=== PATIENT | female | born 1945 | race Caucasian/White ===

== ENCOUNTER 2018-10-09 08:49 | Day surgery (SDC) | payer MEDICARE, OTHER ==
[2018-10-04 10:17] VITALS: BMI 34.0
[~2018-10-09 08:49] MED LIST: LACTATED RINGERS 1,000 ML IV SCH; LIDOCAINE 1% 20 ML VIAL (10MG/ML) FOR IV START INTRADERMA PRN
[2018-10-09 09:13] VITALS: RESP 16; TEMP 97
[2018-10-09] MEDS ORDERED: LIDOCAINE 1% 20 ML VIAL (10MG/ML) FOR IV START INTRADERMA ONE (09:43)
[2018-10-09] MEDS ORDERED: LIDOCAINE 1% INJ 10MG/ML (20 ML MDV) ONE (09:43)
[2018-10-09] MEDS ORDERED: PROPOFOL 10 MG/ML 20 ML VIAL IV ONE (09:43)
[2018-10-09 09:48] LABS: Glucose,Whole Blood 152 mg/dL (75-99)
--- NOTE | 2018-10-09 09:49 | P.GSHP ---
History of Present Illness H&P Date: 10/09/18 Chief Complaint: Colon cancer screening Patient is a history of precancerous colon polyps 3 years ago. She was told to have a follow-up screening colonoscopy 3 years later. Some chronic constipation and IBS issues. No rectal bleeding. Past Medical History Past Medical History: Diabetes Mellitus, Hyperlipidemia, Hypertension Additional Past Medical History / Comment(s): constipation,IBS,palpitation History of Any Multi-Drug Resistant Organisms: None Reported Past Surgical History: Appendectomy, Section, Hernia Repair Additional Past Surgical History / Comment(s): double hernia repair,c section x2 Past Anesthesia/Blood Transfusion Reactions: No Reported Reaction Additional Past Anesthesia/Blood Transfusion Reaction / Comment(s): no hx blood transfusion. difficult IV insertion Smoking Status: Never smoker - Past Family History Mother Family Medical History: Cancer Additional Family Medical History / Comment(s): breast Father Family Medical History: Cancer Additional Family Medical History / Comment(s): lymphoma Sister(s) Family Medical History: Cancer Additional Family Medical History / Comment(s): breast Brother(s) Family Medical History: Cancer Additional Family Medical History / Comment(s): prostate Medications and Allergies Home Medications Medication Instructions Recorded Confirmed Type Ergocalciferol [Vitamin D2] 50,000 unit PO WE 10/04/18 10/04/18 History Levothyroxine Sodium [Synthroid] 75 mcg PO QAM 10/04/18 10/04/18 History Lisinopril 20 mg PO QAM 10/04/18 10/04/18 History Lovastatin [Mevacor] 20 mg PO HS 10/04/18 10/04/18 History Allergies Allergy/AdvReac Type Severity Reaction Status Date / Time clindamycin [From Cleocin] Allergy Rash/Hives Verified 10/09/18 09:41 erythromycin base Allergy Rash/Hives Verified 10/09/18 09:41 Penicillins Allergy Rash/Hives Verified 10/09/18 09:41 Surgical - Exam Vital Signs Temp Pulse Resp BP Pulse Ox 97.0 F L 94 16 158/74 95 10/09/18 09:12 10/09/18 09:12 10/09/18 09:12 10/09/18 09:12 10/09/18 09:12 Physical exam: General: Well-developed, well-nourished HEENT: Normocephalic, sclerae nonicteric Abdomen: Nontender, nondistended Extremities: No edema Neuro: Alert and oriented Assessment and Plan (1) Colon cancer screening Narrative/Plan: Will proceed with colonoscopy Current Visit: Yes Status: Acute Code(s): Z12.11 - ENCOUNTER FOR SCREENING FOR MALIGNANT NEOPLASM OF COLON SNOMED Code(s): 883902317
--- NOTE | 2018-10-09 10:12 | P.PCN ---
Date of Procedure: 10/09/18 Procedure(s) Performed: Date of Procedure: 10/09/18 Procedure(s) Performed: PREOPERATIVE DIAGNOSIS: Colon cancer screening, history of precancerous colon polyp POSTOPERATIVE DIAGNOSIS: Ascending colon polyp, transverse colon polyp 2, extensive left-sided diverticulosis PROCEDURE: Colonoscopy with snare polypectomy ANESTHESIA: [facility] [place] SURGEON: Sebastien Stiles M.D. SPECIMENS: Polyps ENDOSCOPIC PROCEDURE: The patient was placed on the endoscopy table in the left decubitus position. The Olympus colonoscope was inserted into the anus and passed under direct visualization to the base of the cecum. The appendiceal orifice was visualized. From that point the scope was slowly withdrawn inspecting all surfaces carefully. There were no neoplastic inflammatory or polypoid lesions throughout the cecum. In the ascending colon a small polyp was identified and removed using the snare with cautery technique. No significant specimen was seen as this appeared to be fulgurated. In the transverse colon 2 polyps were identified. These were both removed using the snare with cautery technique. The remainder of the transverse descending sigmoid and rectum appeared normal. There was extensive left-sided diverticulosis present. Digital rectal examination was normal. The patient was taken to the recovery room in stable condition per anesthesia guidelines. RECOMMENDATIONS: Await biopsy results. Recommend follow-up colonoscopy 5 years.
[2018-10-09 10:44] VITALS: BP 113/55; PULSE 77
== END 2018-10-09 11:09 | disposition home or self-care (01) ==
LOC: ORWHC2ENDO 08:49
PROVIDERS: ATTEND Surgery
DX: Z12.11 Encounter for screening for malignant neoplasm of colon (principal); D12.2 Benign neoplasm of ascending colon; D12.3 Benign neoplasm of transverse colon; E11.9 Type 2 diabetes mellitus without complications; E78.5 Hyperlipidemia, unspecified; I10 Essential (primary) hypertension; K57.30 Diverticulosis of large intestine without perforation or abscess without bleeding; K58.9 Irritable bowel syndrome, unspecified; K59.09 Other constipation; Z86.010 Personal history of colon polyps; Z88.0 Allergy status to penicillin; Z88.1 Allergy status to other antibiotic agents; Z79.890 Hormone replacement therapy; Z79.899 Other long term (current) drug therapy
CPT/HCPCS: 88305; 45385; J2001; J2704

== ENCOUNTER → 2020-06-22 | Outpatient (CLI) | payer MEDICARE, OTHER ==
--- NOTE | 2020-07-08 10:45 | MM ---
Reason for exam: screening (asymptomatic). Last mammogram was performed 3 years and 10 months ago. History: Patient is postmenopausal. Family history of breast cancer in mother at age 80. Excisional biopsy of the left breast. Took hormonal contraceptives for 1 year. Physical Findings: A clinical breast exam by your physician is recommended on an annual basis and results should be correlated with mammographic findings. MG 3D Screening Mammo W/Cad Bilateral CC and MLO view(s) were taken. Prior study comparison: August 14, 2016, mammogram, performed at [place]. July 27, 2015, mammogram, performed at [place]. There are scattered fibroglandular densities. Artifact right breast. There is no discrete abnormality. No significant changes when compared with prior studies. ASSESSMENT: Benign, BI-RAD 2 RECOMMENDATION: Routine screening mammogram of both breasts in 1 year.
== END | disposition home or self-care (01) ==
LOC: RADMAMWWP 16:44
PROVIDERS: ATTEND Family Medicine
DX: Z12.31 Encounter for screening mammogram for malignant neoplasm of breast (principal); Z80.3 Family history of malignant neoplasm of breast
CPT/HCPCS: 77063; 77067

== ENCOUNTER 2021-03-06 04:21 | Observation (INO) | payer MEDICARE, OTHER ==
[2021-03-06] MEDS ORDERED: ONDANSETRON 4 MG/2 ML VIAL IVP STA (04:56)
[2021-03-06] MEDS ORDERED: MORPHINE SULFATE 4 MG/ML SYRINGE IV STA (04:56)
[2021-03-06] MEDS ORDERED: SODIUM CHLORIDE 0.9% 500 ML 500 ML IV STA (04:56)
--- NOTE | 2021-03-06 05:00 | ED ---
Abdominal Pain HPI - General Chief Complaint: Abdominal Pain Stated Complaint: Abdominal pain Time Seen by Provider: 03/06/21 04:25 Source: patient, EMS Mode of arrival: EMS Limitations: no limitations - History of Present Illness Initial Comments: This patient is 75-year-old woman who presents with complaint of abdominal pain and nausea. Patient states that the symptoms had started about an hour after she had eaten at her residence. The patient describes a bloating or fullness with some occasional cramping. His long the upper abdomen. No radiation. She has also had nausea but no vomiting. Patient rates it moderate in intensity. She also has been having some back pains for about 2 weeks since she had lifted her who she states is a very big man. She states that the back has been hurting worse, it is an aching, bilateral. No weakness or numbness of the extremities. No change in bladder or bowel function. MD Complaint: abdominal pain -: hour(s) Location: LUQ, RUQ, epigastric Radiation: none Severity: moderate Quality: fullness Consistency: constant Improves With: nothing Worsens With: nothing Associated Symptoms: nausea - Related Data Home Medications Medication Instructions Recorded Confirmed lisinopriL 20 mg PO DAILY 10/04/18 03/06/21 Rosuvastatin [Crestor] 20 mg PO HS 03/06/21 03/06/21 Ergocalciferol [Vitamin D2 (1250 1,250 mcg PO Q7D 03/07/21 03/07/21 Mcg = 50014 Iu)] metFORMIN HCL [Glucophage] 500 mg PO DAILY@1200 03/07/21 03/07/21 Previous Rx's Medication Instructions Recorded Levothyroxine Sodium [Euthyrox] 50 mcg PO DAILY #1 tablet 03/07/21 Allergies Allergy/AdvReac Type Severity Reaction Status Date / Time clindamycin [From Cleocin] Allergy Rash/Hives Verified 03/06/21 07:48 erythromycin base Allergy Rash/Hives Verified 03/06/21 07:48 Penicillins Allergy Rash/Hives Verified 03/06/21 07:48 Review of Systems ROS Statement: Those systems with pertinent positive or pertinent negative responses have been documented in the HPI. ROS Other: All systems not noted in ROS Statement are negative. Constitutional: Denies: fever, chills Respiratory: Denies: cough, dyspnea Cardiovascular: Denies: chest pain, palpitations, edema Gastrointestinal: Reports: as per HPI, abdominal pain, nausea. Denies: vomiting, diarrhea, constipation, melena, hematochezia Genitourinary: Denies: dysuria, hematuria Musculoskeletal: Reports: as per HPI, back pain Skin: Denies: rash Neurological: Denies: headache, weakness, numbness Past Medical History Past Medical History: Diabetes Mellitus, Hyperlipidemia, Hypertension Additional Past Medical History / Comment(s): constipation,IBS,palpitation History of Any Multi-Drug Resistant Organisms: None Reported Past Surgical History: Appendectomy, Section, Hernia Repair Additional Past Surgical History / Comment(s): double hernia repair,c section x2 Past Anesthesia/Blood Transfusion Reactions: No Reported Reaction Additional Past Anesthesia/Blood Transfusion Reaction / Comment(s): no hx blood transfusion. difficult IV insertion Smoking Status: Never smoker Past Alcohol Use History: None Reported Past Drug Use History: None Reported - Past Family History Mother Family Medical History: Cancer Additional Family Medical History / Comment(s): breast Father Family Medical History: Cancer Additional Family Medical History / Comment(s): lymphoma Sister(s) Family Medical History: Cancer Additional Family Medical History / Comment(s): breast Brother(s) Family Medical History: Cancer Additional Family Medical History / Comment(s): prostate General Exam Limitations: no limitations General appearance: alert, in no apparent distress Head exam: Present: atraumatic, normocephalic Eye exam: Present: normal appearance. Absent: scleral icterus, conjunctival injection Neck exam: Present: normal inspection, full ROM Respiratory exam: Present: normal lung sounds bilaterally. Absent: respiratory distress, wheezes, rales, rhonchi, stridor Cardiovascular Exam: Present: regular rate, normal rhythm, normal heart sounds. Absent: systolic murmur, diastolic murmur, rubs, gallop GI/Abdominal exam: Present: soft. Absent: distended, tenderness, guarding, rebound, rigid, mass, pulsatile mass, hernia Extremities exam: Present: normal inspection, normal capillary refill. Absent: pedal edema, calf tenderness Back exam: Present: normal inspection, paraspinal tenderness. Absent: CVA tenderness (R), CVA tenderness (L), vertebral tenderness Neurological exam: Present: alert Skin exam: Present: warm, dry, intact, normal color. Absent: rash Course Vital Signs 03/06/21 03/06/21 03/06/21 04:22 06:37 09:14 Temperature 98.4 F Pulse Rate 74 77 75 Respiratory 16 18 18 Rate Blood Pressure 145/72 134/53 131/64 O2 Sat by Pulse 97 96 96 Oximetry Medical Decision Making - Medical Decision Making At the initial history and physical, the patient did request medication for naus ea. When I asked if she wanted the analgesic medicine she stated that she felt it would be more needed for her back then and her abdomen. - Lab Data Result diagrams: 03/07/21 06:21 03/07/21 06:21 Lab Results 03/06/21 03/06/21 03/06/21 Range/Units 05:00 05:00 05:00 WBC 13.4 H (3.8-10.6) k/uL RBC 4.64 (3.80-5.40) m/uL Hgb 14.9 (11.4-16.0) gm/dL Hct 43.7 (34.0-46.0) % MCV 94.0 (80.0-100.0) fL MCH 32.0 (25.0-35.0) pg MCHC 34.1 (31.0-37.0) g/dL RDW 12.6 (11.5-15.5) % Plt Count 328 (150-450) k/uL MPV 6.9 Neutrophils % 88 % Lymphocytes % 7 % Monocytes % 3 % Eosinophils % 1 % Basophils % 1 % Neutrophils # 11.8 H (1.3-7.7) k/uL Lymphocytes # 0.9 L (1.0-4.8) k/uL Monocytes # 0.4 (0-1.0) k/uL Eosinophils # 0.1 (0-0.7) k/uL Basophils # 0.1 (0-0.2) k/uL Sodium 136 L (137-145) mmol/L Potassium 4.7 (3.5-5.1) mmol/L Chloride 102 (98-107) mmol/L Carbon Dioxide 25 (22-30) mmol/L Anion Gap 9 mmol/L BUN 20 H (7-17) mg/dL Creatinine 0.79 (0.52-1.04) mg/dL Est GFR (CKD-EPI)AfAm 85 (>60 ml/min/1.73 sqM) Est GFR (CKD-EPI)NonAf 74 (>60 ml/min/1.73 sqM) Glucose 182 H (74-99) mg/dL Calcium 9.7 (8.4-10.2) mg/dL Total Bilirubin 0.7 (0.2-1.3) mg/dL AST 29 (14-36) U/L ALT 19 (4-34) U/L Alkaline Phosphatase 72 (38-126) U/L Total Protein 7.1 (6.3-8.2) g/dL Albumin 4.6 (3.5-5.0) g/dL Amylase 61 (30-110) U/L Lipase 81 (23-300) U/L Urine Color Yellow Urine Appearance Clear (Clear) Urine pH 5.5 (5.0-8.0) Ur Specific Hart[place]orn 1.027 (1.001-1.035) Urine Protein Negative (Negative) Urine Glucose (UA) 1+ H (Negative) Urine Ketones Trace H (Negative) Urine Blood Negative (Negative) Urine Nitrite Negative (Negative) Urine Bilirubin Negative (Negative) Urine Urobilinogen <2.0 (<2.0) mg/dL Ur Leukocyte Esterase Small H (Negative) Urine RBC 1 (0-5) /hpf Urine WBC 1 (0-5) /hpf Ur Squamous Epith Cells 2 (0-4) /hpf Hyaline Casts 4 H (0-2) /lpf Urine Mucus Rare H (None) /hpf Disposition Clinical Impression: Abdominal pain, Biliary colic Disposition: ADMITTED IP TO THIS HOSP Condition: Stable
[2021-03-06 05:23] LABS: Basophils # (A) 0.1 k/uL (0-0.2); Basophils % (A) 1 %; Eosinophils # (A) 0.1 k/uL (0-0.7); Eosinophils % (A) 1 %; HCT 43.7 % (34.0-46.0); HGB 14.9 gm/dL (11.4-16.0); Lymphocytes # (A) 0.9 k/uL (1.0-4.8); Lymphocytes % (A) 7 %; MCHC 34.1 g/dL (31.0-37.0); Mean Platelet Volume 6.9; Monocytes # (A) 0.4 k/uL (0-1.0); Monocytes % (A) 3 %; Neutrophils # (A) 11.8 k/uL (1.3-7.7); Neutrophils % (A) 88 %; Platelet Count 328 k/uL (150-450); RBC 4.64 m/uL (3.80-5.40); RDW 12.6 % (11.5-15.5); WBC 13.4 k/uL (3.8-10.6)
[2021-03-06 05:31] LABS: Albumin 4.6 g/dL (3.5-5.0); Calcium 9.7 mg/dL (8.4-10.2); Potassium 4.7 mmol/L (3.5-5.1); Total Bilirubin 0.7 mg/dL (0.2-1.3); Total Protein 7.1 g/dL (6.3-8.2)
[2021-03-06 06:44] LABS: Appearance,Urine Clear (Clear); Bilirubin,Urine Negative (Negative); Blood,Urine Negative (Negative); Color,Urine Yellow; Glucose,Urine (UA) 1+ (Negative); Hyaline Casts,Urine 4 /lpf (0-2); Ketones,Urine Trace (Negative); Leukocyte Esterase,Urine Small (Negative); Mucus,Urine Rare /hpf; Nitrite,Urine Negative (Negative); PH, Urine 5.5 (5.0-8.0); Protein,Urine Negative (Negative); RBC,Urine 1 /hpf (0-5); Specific Gravity,Urine 1.027 (1.001-1.035); Squamous Epithelial Cell,Urine 2 /hpf (0-4); Urobilinogen,Urine <2.0 mg/dL (<2.0); WBC,Urine 1 /hpf (0-5)
[2021-03-06] MEDS ORDERED: HYDROmorphone 0.5 MG/0.5 ML SYRINGE IVP PRN (07:11)
[2021-03-06] MEDS ORDERED: NALOXONE 0.4 MG/ML 1 ML VIAL IV PRN (07:11)
[2021-03-06] MEDS ORDERED: HYDROmorphone 1 MG/ML 1 ML SYRINGE IVP PRN (07:11)
[2021-03-06] MEDS ORDERED: ONDANSETRON 4 MG/2 ML VIAL IVP PRN (07:11)
--- NOTE | 2021-03-06 07:15 | CT ---
EXAM: CT Abdomen and Pelvis Without Intravenous Contrast CLINICAL HISTORY: ITS.REASON CT Reason: abdominal pain TECHNIQUE: Axial computed tomography images of the abdomen and pelvis without intravenous contrast. CTDI is 15.67 mGy and DLP is 871.5 mGy-cm. This CT exam was performed using one or more of the following dose reduction techniques: automated exposure control, adjustment of the mA and/or kV according to patient size, and/or use of iterative reconstruction technique. COMPARISON: No relevant prior studies available. FINDINGS: Lung bases: Unremarkable. No mass. No consolidation. ABDOMEN: Liver: Unremarkable. Gallbladder and bile ducts: Multiple large peripherally calcified stones. No ductal dilation. Pancreas: Unremarkable. No ductal dilation. Spleen: Unremarkable. No splenomegaly. Adrenals: Unremarkable. No mass. Kidneys and ureters: Unremarkable. No obstructing stones. No hydronephrosis. Stomach and bowel: Extensive colonic diverticulosis. No obstruction. No mucosal thickening. PELVIS: Appendix: No findings to suggest acute appendicitis. Bladder: Unremarkable. No stones. Reproductive: Unremarkable as visualized. ABDOMEN and PELVIS: Intraperitoneal space: Unremarkable. No free air. No significant fluid collection. Bones/joints: No acute fracture. No dislocation. Soft tissues: Unremarkable. Vasculature: Unremarkable. No abdominal aortic aneurysm. Lymph nodes: Unremarkable. No enlarged lymph nodes. IMPRESSION: 1. Cholelithiasis. 2. Extensive colonic diverticulosis. No evidence of diverticulitis. 3. Moderate hiatal hernia.
[2021-03-06] MEDS: SODIUM CHLORIDE 0.9% 1,000 ML IV SCH ×3 (07:18→21:28)
[2021-03-06] MEDS: PANTOPRAZOLE 40 MG/10 ML VIAL IV SCH (09:13)
[2021-03-06] MEDS: lisinopriL 20 MG TAB PO SCH (09:15)
[2021-03-06] MEDS: LEVOTHYROXINE 75 MCG TAB PO SCH (09:15)
--- NOTE | 2021-03-06 12:02 | P.GSCN ---
History of Present Illness Consult date: 03/06/21 Reason for Consult: Abdominal pain and nausea History of present illness: The patient's a 75-year-old female that presented with abdominal pain and nausea. It started shortly after eating some shrimp cream sauce. Tubal bloating and discomfort across the upper abdomen going through to the back. No vomiting. She's had this before but not as severe. She also is complaining of low back pain after lifting her . Denies jaundice, tea-colored urine, acholic stool, fevers or chills, no blood in the stools or dark tarry stools Review of Systems All systems: negative Past Medical History Past Medical History: Diabetes Mellitus, Hyperlipidemia, Hypertension Additional Past Medical History / Comment(s): constipation,IBS,palpitation History of Any Multi-Drug Resistant Organisms: None Reported Past Surgical History: Appendectomy, Section, Hernia Repair Additional Past Surgical History / Comment(s): double hernia repair,c section x2 Past Anesthesia/Blood Transfusion Reactions: No Reported Reaction Additional Past Anesthesia/Blood Transfusion Reaction / Comm: no hx blood transfusion. difficult IV insertion Smoking Status: Never smoker Past Alcohol Use History: None Reported Past Drug Use History: None Reported - Past Family History Mother Family Medical History: Cancer Additional Family Medical History / Comment(s): breast Father Family Medical History: Cancer Additional Family Medical History / Comment(s): lymphoma Sister(s) Family Medical History: Cancer Additional Family Medical History / Comment(s): breast Brother(s) Family Medical History: Cancer Additional Family Medical History / Comment(s): prostate Medications and Allergies Home Medications Medication Instructions Recorded Confirmed Type lisinopriL 20 mg PO DAILY 10/04/18 03/06/21 History Levothyroxine Sodium [Synthroid] 50 mcg PO DAILY 03/06/21 03/06/21 History Metformin(Unknown) 1 tab PO DAILY@1200 03/06/21 03/06/21 History Rosuvastatin [Crestor] 20 mg PO HS 03/06/21 03/06/21 History Allergies Allergy/AdvReac Type Severity Reaction Status Date / Time clindamycin [From Cleocin] Allergy Rash/Hives Verified 03/06/21 07:48 erythromycin base Allergy Rash/Hives Verified 03/06/21 07:48 Penicillins Allergy Rash/Hives Verified 05/02/21 07:48 Surgical - Exam Osteopathic Statement: *. No significant issues noted on an osteopathic structural exam other than those noted in the History and Physical/Consult. Vital Signs Temp Pulse Resp BP Pulse Ox 98.4 F 74 16 145/72 97 03/06/21 04:22 03/06/21 04:22 03/06/21 04:22 03/06/21 04:22 03/06/21 04:22 - General Age-appropriate, appears uncomfortable well developed, well nourished - Eyes normal ocular movement - Neck trachea midline - Respiratory normal respiratory effort, clear to auscultation - Cardiovascular Rhythm: regular - Abdomen Abdomen: soft, tender (Across upper abdomen), bowel sounds, no guarding, no rigid, no rebound - Psychiatric oriented to time, oriented to person, oriented to place, speech is normal, memory intact Results - Labs 03/06/21 05:00 03/06/21 05:00 Abnormal Lab Results - Last 24 Hours (Table) 03/06/21 03/06/21 03/06/21 Range/Units 05:00 05:00 05:00 WBC 13.4 H (3.8-10.6) k/uL Neutrophils # 11.8 H (1.3-7.7) k/uL Lymphocytes # 0.9 L (1.0-4.8) k/uL Sodium 136 L (137-145) mmol/L BUN 20 H (7-17) mg/dL Glucose 182 H (74-99) mg/dL Urine Glucose (UA) 1+ H (Negative) Urine Ketones Trace H (Negative) Ur Leukocyte Esterase Small H (Negative) Hyaline Casts 4 H (0-2) /lpf Urine Mucus Rare H (None) /hpf Diabetes panel 03/06/21 Range/Units 05:00 Sodium 136 L (137-145) mmol/L Potassium 4.7 (3.5-5.1) mmol/L Chloride 102 (98-107) mmol/L Carbon Dioxide 25 (22-30) mmol/L BUN 20 H (7-17) mg/dL Creatinine 0.79 (0.52-1.04) mg/dL Glucose 182 H (74-99) mg/dL Calcium 9.7 (8.4-10.2) mg/dL AST 29 (14-36) U/L ALT 19 (4-34) U/L Alkaline Phosphatase 72 (38-126) U/L Total Protein 7.1 (6.3-8.2) g/dL Albumin 4.6 (3.5-5.0) g/dL Calcium panel 03/06/21 Range/Units 05:00 Calcium 9.7 (8.4-10.2) mg/dL Albumin 4.6 (3.5-5.0) g/dL Pituitary panel 03/06/21 Range/Units 05:00 Sodium 136 L (137-145) mmol/L Potassium 4.7 (3.5-5.1) mmol/L Chloride 102 (98-107) mmol/L Carbon Dioxide 25 (22-30) mmol/L BUN 20 H (7-17) mg/dL Creatinine 0.79 (0.52-1.04) mg/dL Glucose 182 H (74-99) mg/dL Calcium 9.7 (8.4-10.2) mg/dL Adrenal panel 03/06/21 Range/Units 05:00 Sodium 136 L (137-145) mmol/L Potassium 4.7 (3.5-5.1) mmol/L Chloride 102 (98-107) mmol/L Carbon Dioxide 25 (22-30) mmol/L BUN 20 H (7-17) mg/dL Creatinine 0.79 (0.52-1.04) mg/dL Glucose 182 H (74-99) mg/dL Calcium 9.7 (8.4-10.2) mg/dL Total Bilirubin 0.7 (0.2-1.3) mg/dL AST 29 (14-36) U/L ALT 19 (4-34) U/L Alkaline Phosphatase 72 (38-126) U/L Total Protein 7.1 (6.3-8.2) g/dL Albumin 4.6 (3.5-5.0) g/dL - Imaging CT scan - abdomen: report reviewed, image reviewed Assessment and Plan (1) Cholelithiasis Current Visit: Yes Status: Acute Code(s): K80.20 - CALCULUS OF GALLBLADDER W/O CHOLECYSTITIS W/O OBSTRUCTION SNOMED Code(s): 093708060 (2) Biliary colic Current Visit: Yes Status: Acute Code(s): K80.50 - CALCULUS OF BILE DUCT W/O CHOLANGITIS OR CHOLECYST W/O OBST SNOMED Code(s): 14980216 (3) Nausea Current Visit: Yes Status: Acute Code(s): R11.0 - NAUSEA SNOMED Code(s): 261220933 (4) Low back pain Current Visit: Yes Status: Acute Code(s): M54.5 - LOW BACK PAIN SNOMED Code(s): 931496737 Plan: The patient is having persistent pain and nausea. Initially this improved with some pain medication but it's become worse again. She'd like to proceed with surgery. The procedure, risks, complications and usual postoperative course was discussed. Questions were encouraged and answered. We'll do this for her today.
[2021-03-06] MEDS ORDERED: ROCURONIUM 10 MG/ML (5 ML VIAL) IV ONE (13:13)
[2021-03-06] MEDS ORDERED: fentaNYL (PF) 50 MCG/ML 2 ML AMP ONE (13:13)
[2021-03-06] MEDS ORDERED: SUCCINYLCHOLINE CHLORIDE 100 MG/5 ML SYR IV ONE (13:13)
[2021-03-06] MEDS ORDERED: PROPOFOL 10 MG/ML 20 ML VIAL IV ONE (13:13)
[2021-03-06] MEDS ORDERED: PHENYLEPHRINE-0.9% NACL SYG 1,000 MCG/10 ML SYRINGE ONE (13:13)
[2021-03-06] MEDS ORDERED: ONDANSETRON 4 MG/2 ML VIAL ONE (13:13)
[2021-03-06] MEDS ORDERED: GLYCOPYRROLATE 0.2 MG/ML 2 ML VIAL ONE (13:13)
[2021-03-06] MEDS ORDERED: SODIUM CHLORIDE 0.9% 1,000 ML IV ONE (13:13)
[2021-03-06] MEDS ORDERED: MIDAZOLAM 2 MG/2 ML VIAL ONE (13:13)
[2021-03-06] MEDS ORDERED: NEOSTIGMINE 1 MG/ML 10 ML VIAL ONE (13:13)
[2021-03-06] MEDS ORDERED: SODIUM CHLORIDE 0.9% 100 ML with ceFAZolin 2,000 MG IV ONE ×2 (13:15)
[2021-03-06] MEDS ORDERED: LIDOCAINE 1%-EPI 1:100,000 20 ML VIAL SQ ONE ×2 (13:31)
[2021-03-06] MEDS ORDERED: BUPIVACAINE (PF) 0.25% 30 ML VIAL SQ ONE ×2 (13:31)
[2021-03-06] MEDS ORDERED: LACTATED RINGERS 1,000 ML IV ONE ×2 (14:00)
[2021-03-06] MEDS ORDERED: HYDROcodone/APAP 5-325MG 1 EACH TAB PO PRN (14:20)
--- NOTE | 2021-03-06 14:20 | P.OP ---
Date of Procedure: 03/06/21 Preoperative Diagnosis: Cholelithiasis, cholecystitis Postoperative Diagnosis: Cholelithiasis, acute cholecystitis Procedure(s) Performed: Laparoscopic cholecystectomy Anesthesia: GORAN Surgeon: Jennifer Aguilar Pathology: other Condition: stable Disposition: PACU Indications for Procedure: The patient presented with several hours of acute abdominal pain and nausea. She was worked up in the ER and found to have cholelithiasis with symptoms most consistent with cholecystitis. Initially she declined surgery. More hours of pain she was agreeable. Description of Procedure: The patient is taken to the operative suite where she is prepped and draped in the usual sterile manner under a general endotracheal anesthetic. A supraumbilical incision was made. The fascia was grasped and incised. The peritoneum was grasped and incised. A finger sweep was carried out. There were some adhesions of the omentum to the lower midline. A balloon trocar was inserted and pneumoperitoneum was established with CO2 gas. Sites are chosen for accessory trochars needs are placed through small skin incisions. The patient was placed in reverse Trendelenburg. The gallbladder was very distended and hard. It was somewhat edematous. It had to be decompressed of about 60 mL's of murky bile to allow for grasping it. The fundus was then grasped and retracted superiorly, filmy adhesions of the omentum were taken down with scissors. Calvo's pouch was then identified and it was grasped and retracted laterally. The cystic artery and cystic duct are dissected free. They are triply clipped and cut. The cystic duct is further secured with 0 PDS Endoloop. The gallbladder is then dissected free from the liver bed. Small bleeding points were controlled with electrocautery. The gallbladder was placed into a specimen retrieval bag. The liver bed was irrigated and small bleeding points were controlled with electrocautery. Once the liver bed was hemostatic, the access irrigant was suctioned out. The pneumoperitoneum was released. The trochars were removed. The skin and fascia at the umbilicus had to be extended for removal of the gallbladder. 2 large stones were present. Shut the umbilicus was then closed with 0 Vicryl. The skin incisions were closed with марина. Sterile dressings were applied. She tolerated the procedure without difficulty and was taken recovery room in satisfactory condition. According to or personnel, all counts were correct.
--- NOTE | 2021-03-06 14:28 | P.HPIM ---
History of Present Illness H&P Date: 03/06/21 Chief Complaint: Abdominal pain 75-year-old woman who presents with complaint of abdominal pain and nausea. Patient states that the symptoms had started about an hour after she had eaten at her residence. The patient describes a bloating or fullness with some occasional cramping. His long the upper abdomen. No radiation. She has also had nausea but no vomiting. Patient rates it moderate in intensity. She also has been having some back pains for about 2 weeks since she had lifted her who she states is a very big man. She states that the back has been hurting worse, it is an aching, bilateral. No weakness or numbness of the extremities. No change in bladder or bowel function. Workup in ED including a CT of the abdomen and pelvis which revealed cholel ithiasis and extensive colonic diverticulosis without diverticulitis; lab work reveals elevated white blood count of 13.4; liver enzymes are normal; UA is unremarkable Review of Systems REVIEW OF SYSTEMS: CONSTITUTIONAL: No fever, no malaise, no fatigue. HEENT: No recent visual problems or hearing problems. Denied any sore throat. CARDIOVASCULAR: No chest pain, orthopnea, PND, no palpitations, no syncope. PULMONARY: No shortness of breath, no cough, no hemoptysis. GASTROINTESTINAL: Significant for abdominal pain. NEUROLOGICAL: No headaches, no weakness, no numbness. HEMATOLOGICAL: Denies any bleeding or petechiae. GENITOURINARY: Denies any burning micturition, frequency, or urgency. MUSCULOSKELETAL/RHEUMATOLOGICAL: Denies any joint pain, swelling, or any muscle pain. ENDOCRINE: Denies any polyuria or polydipsia. The rest of the 14-point review of systems is negative. Past Medical History Past Medical History: Diabetes Mellitus, Hyperlipidemia, Hypertension Additional Past Medical History / Comment(s): constipation,IBS,palpitation History of Any Multi-Drug Resistant Organisms: None Reported Past Surgical History: Appendectomy, Section, Hernia Repair Additional Past Surgical History / Comment(s): double hernia repair,c section x2 Past Anesthesia/Blood Transfusion Reactions: No Reported Reaction Additional Past Anesthesia/Blood Transfusion Reaction / Comment(s): no hx blood transfusion. difficult IV insertion Smoking Status: Never smoker Past Alcohol Use History: None Reported Past Drug Use History: None Reported - Past Family History Mother Family Medical History: Cancer Additional Family Medical History / Comment(s): breast Father Family Medical History: Cancer Additional Family Medical History / Comment(s): lymphoma Sister(s) Family Medical History: Cancer Additional Family Medical History / Comment(s): breast Brother(s) Family Medical History: Cancer Additional Family Medical History / Comment(s): prostate Medications and Allergies Home Medications Medication Instructions Recorded Confirmed Type lisinopriL 20 mg PO DAILY 10/04/18 03/06/21 History Levothyroxine Sodium [Synthroid] 50 mcg PO DAILY 03/06/21 03/06/21 History Metformin(Unknown) 1 tab PO DAILY@1200 03/06/21 03/06/21 History Rosuvastatin [Crestor] 20 mg PO HS 03/06/21 03/06/21 History Allergies Allergy/AdvReac Type Severity Reaction Status Date / Time clindamycin [From Cleocin] Allergy Rash/Hives Verified 03/06/21 07:48 erythromycin base Allergy Rash/Hives Verified 03/06/21 07:48 Penicillins Allergy Rash/Hives Verified 03/06/21 07:48 Physical Exam Vitals: Vital Signs Temp Pulse Resp BP Pulse Ox 03/06/21 09:14 75 18 131/64 96 03/06/21 06:37 77 18 134/53 96 03/06/21 04:22 98.4 F 74 16 145/72 97 Intake and Output 03/05/21 03/06/21 03/06/21 22:59 06:59 14:59 Other: Weight 86.183 kg PHYSICAL EXAMINATION: GENERAL: The patient is alert and oriented x3, not in any acute distress. Well developed, well nourished. HEENT: Pupils are round and equally reacting to light. EOMI. No scleral icterus. No conjunctival pallor. Normocephalic, atraumatic. No pharyngeal erythema. No thyromegaly. CARDIOVASCULAR: S1 and S2 present. No murmurs, rubs, or gallops. PULMONARY: Chest is clear to auscultation, no wheezing or crackles. ABDOMEN: Soft, nontender, nondistended, normoactive bowel sounds. No palpable organomegaly. MUSCULOSKELETAL: No joint swelling or deformity. EXTREMITIES: No cyanosis, clubbing, or pedal edema. NEUROLOGICAL: Gross neurological examination did not reveal any focal deficits. SKIN: No rashes. Results CBC & Chem 7: 03/06/21 05:00 03/06/21 05:00 Labs: Abnormal Lab Results - Last 24 Hours (Table) 03/06/21 03/06/21 03/06/21 Range/Units 05:00 05:00 05:00 WBC 13.4 H (3.8-10.6) k/uL Neutrophils # 11.8 H (1.3-7.7) k/uL Lymphocytes # 0.9 L (1.0-4.8) k/uL Sodium 136 L (137-145) mmol/L BUN 20 H (7-17) mg/dL Glucose 182 H (74-99) mg/dL Urine Glucose (UA) 1+ H (Negative) Urine Ketones Trace H (Negative) Ur Leukocyte Esterase Small H (Negative) Hyaline Casts 4 H (0-2) /lpf Urine Mucus Rare H (None) /hpf Thrombosis Risk Factor Assmnt - Choose All That Apply Each Risk Factor Represents 2 Points: Age 61-74 years, Laparoscopic surgery, Major surgery Thrombosis Risk Factor Assessment Total Risk Factor Score: 6 Thrombosis Risk Factor Assessment Level: High Risk Assessment and Plan Assessment: 1. Cholelithiasis without cholecystitis - Patient will be admitted to general surgical floor; we will keep patient nothing by mouth; IV fluids; pain controlled with IV Toradol - Surgery is consulted and patient is recommended laparoscopic cholecystectomy due to ongoing complain of pain and nausea; risks and complications of the procedure were discussed with patient and she is agreeable to proceed 2. Biliary colic; secondary to cholelithiasis; continue with IV fluids and pain control 3. Hypertension; continue with home dose of lisinopril 20 mg daily 4. Hypothyroidism; levothyroxine 75 MCG daily 5. Hyperlipidemia; Crestor 20 mg by mouth daily at bedtime DVT prophylaxis; SCDs only for possibility of procedure in 12-24 hours CODE STATUS; full code
[2021-03-06 17:50] LABS: Glucose,Whole Blood 169 mg/dL (75-99)
[2021-03-06] MEDS: INSULIN ASPART (NovoLOG) 100 UNIT/ML VIAL SQ SCH ×2 (17:57→20:39)
[2021-03-06 20:26] LABS: Glucose,Whole Blood 139 mg/dL (75-99)
[2021-03-06] MEDS: KETOROLAC 15 MG/ML 1 ML VIAL IVP PRN (20:38)
[2021-03-06] MEDS ORDERED: ATORVASTATIN 10 MG TAB PO SCH (21:00)
[2021-03-07] MEDS: KETOROLAC 15 MG/ML 1 ML VIAL IVP PRN (03:02)
[2021-03-07 06:24] LABS: Glucose,Whole Blood 113 mg/dL (75-99)
[2021-03-07] MEDS: LEVOTHYROXINE 75 MCG TAB PO SCH (06:28)
[2021-03-07 06:41] LABS: Basophils # (A) 0.1 k/uL (0-0.2); Basophils % (A) 1 %; Eosinophils # (A) 0.2 k/uL (0-0.7); Eosinophils % (A) 2 %; HCT 35.2 % (34.0-46.0); HGB 12.3 gm/dL (11.4-16.0); Lymphocytes # (A) 1.9 k/uL (1.0-4.8); Lymphocytes % (A) 19 %; MCH 33.5 pg (25.0-35.0); MCHC 34.9 g/dL (31.0-37.0); MCV 95.9 fL (80.0-100.0); Mean Platelet Volume 6.9; Monocytes # (A) 0.7 k/uL (0-1.0); Monocytes % (A) 7 %; Neutrophils % (A) 71 %; Platelet Count 224 k/uL (150-450); RBC 3.67 m/uL (3.80-5.40); RDW 12.9 % (11.5-15.5); WBC 9.9 k/uL (3.8-10.6)
[2021-03-07 06:57] LABS: Albumin 2.9 g/dL (3.5-5.0); Calcium 8.5 mg/dL (8.4-10.2); Potassium 4.8 mmol/L (3.5-5.1); Total Bilirubin 0.8 mg/dL (0.2-1.3); Total Protein 4.9 g/dL (6.3-8.2)
[2021-03-07] MEDS: INSULIN ASPART (NovoLOG) 100 UNIT/ML VIAL SQ SCH ×2 (07:28→12:24)
[2021-03-07] MEDS: SODIUM CHLORIDE 0.9% 1,000 ML IV SCH ×2 (09:12→13:05)
[2021-03-07] MEDS: lisinopriL 20 MG TAB PO SCH (09:12)
[2021-03-07] MEDS: PANTOPRAZOLE 40 MG/10 ML VIAL IV SCH (09:12)
--- NOTE | 2021-03-07 11:04 | P.PN ---
Subjective Progress Note Date: 03/07/21 The patient's postoperative day 1 laparoscopic cholecystectomy for acute cholecystitis. She feels much better than preoperative. Not requiring any pain medication. No nausea or vomiting. Tolerating a diet. Objective - Vital Signs Vital signs: Vital Signs Temp 98.5 F 03/07/21 08:20 Pulse 70 03/07/21 08:20 Resp 16 03/07/21 08:20 BP 96/55 03/07/21 08:20 Pulse Ox 95 03/07/21 08:20 Intake & Output 03/06/21 03/07/21 03/07/21 18:59 06:59 18:59 Intake Total 800 Output Total 885 400 Balance -85 -400 Weight 86.183 kg Intake: IV 800 Output: Urine 875 400 Estimated Blood Loss 10 Other: Voiding Method Toilet # Voids 1 1 2 - Constitutional General appearance: Present: cooperative, no acute distress - Gastrointestinal General gastrointestinal: Present: normal bowel sounds, soft Localized gastrointestinal: surgical scar: diffuse (Dressings are clean and dry. There is a small amount of serosanguineous drainage on the umbilical dressing) - Labs CBC & Chem 7: 03/07/21 06:21 03/07/21 06:21 Labs: Abnormal Lab Results - Last 24 Hours (Table) 03/06/21 03/06/21 03/07/21 Range/Units 17:48 20:25 06:21 RBC 3.67 L (3.80-5.40) m/uL Chloride (98-107) mmol/L Glucose (74-99) mg/dL POC Glucose (mg/dL) 169 H 139 H (75-99) mg/dL AST (14-36) U/L ALT (4-34) U/L Total Protein (6.3-8.2) g/dL Albumin (3.5-5.0) g/dL 03/07/21 03/07/21 Range/Units 06:21 06:23 RBC (3.80-5.40) m/uL Chloride 109 H (98-107) mmol/L Glucose 107 H (74-99) mg/dL POC Glucose (mg/dL) 113 H (75-99) mg/dL AST 60 H (14-36) U/L ALT 48 H (4-34) U/L Total Protein 4.9 L (6.3-8.2) g/dL Albumin 2.9 L (3.5-5.0) g/dL Assessment and Plan (1) Cholelithiasis Current Visit: Yes Status: Acute Code(s): K80.20 - CALCULUS OF GALLBLADDER W/O CHOLECYSTITIS W/O OBSTRUCTION SNOMED Code(s): 248455028 (2) Biliary colic Current Visit: Yes Status: Acute Code(s): K80.50 - CALCULUS OF BILE DUCT W/O CHOLANGITIS OR CHOLECYST W/O OBST SNOMED Code(s): 55312126 (3) Nausea Current Visit: Yes Status: Acute Code(s): R11.0 - NAUSEA SNOMED Code(s): 932305055 (4) Low back pain Current Visit: Yes Status: Acute Code(s): M54.5 - LOW BACK PAIN SNOMED Code(s): 501584061 Plan: The patient's doing well surgically. She may be discharged home. Low-fat diet. Expect some bruising of the bellybutton. Call if she develops fevers, chills, nausea or vomiting, concerns of wound infections. Follow-up with me in the office in 2 weeks
[2021-03-07 11:15] VITALS: BP 126/70; PULSE 68; RESP 18; TEMP 98
[2021-03-07 12:43] LABS: Glucose,Whole Blood 106 mg/dL (75-99)
[2021-03-07 14:33] LABS: Hemoglobin A1C 6.7 % (4.0-6.0)
--- NOTE | 2021-03-08 15:46 | P.DS ---
Providers Date of admission: 03/06/21 07:11 Expected date of discharge: 03/07/21 Attending physician: Nahum Krishnamurthy Consults: 03/06/21 07:13 Consult Physician Routine Consulting Provider: Jennifer Aguilar Consult Reason/Comments: symptomatic cholelithiasis Do you want consulting provider notified?: Yes Primary care physician: Nahum Krishnamurthy [facility] Course: Final Diagnoses. 1. Cholelithiasis, symptomatic, ongoing pain, nausea. Status post laparoscopic cholecystectomy 2. Biliary colic; secondary to cholelithiasis 3. Hypertension 4. Hypothyroidism 5. Hyperlipidemia This is a 75-year-old female admitted with symptomatic cholelithiasis, status post laparoscopic cholecystectomy. Tolerated procedure well. Denies pain. Positive diet intake with no nausea or vomiting. Passing flatus. Denies chest pain, palpitations or shortness of breath. Ambulating, tolerating exertion well. Denies lightheadedness dizziness or focal deficits. Significant clinical improvement. Patient will be discharged home today pending final DC recommendations and clearance from surgery. The impression and plan of care has been dictated as directed. : I performed a history and examination of this patient, discussed the same with the dictator. I agree with the dictator's note ,documented as a scribe. Any additional findings or plans will be noted. Patient Condition at Discharge: Stable Plan - Discharge Summary Discharge Rx Participant: Yes New Discharge Prescriptions: New Levothyroxine Sodium [Euthyrox] 50 mcg PO DAILY #1 tablet Continue lisinopriL 20 mg PO DAILY Rosuvastatin [Crestor] 20 mg PO HS Discontinued Levothyroxine Sodium [Synthroid] 50 mcg PO DAILY No Action metFORMIN HCL [Glucophage] 500 mg PO DAILY@1200 Ergocalciferol [Vitamin D2 (1250 Mcg = 89868 Iu)] 1,250 mcg PO Q7D Discharge Medication List lisinopriL 20 mg PO DAILY 10/04/18 [History] Rosuvastatin [Crestor] 20 mg PO HS 03/06/21 [History] Ergocalciferol [Vitamin D2 (1250 Mcg = 08491 Iu)] 1,250 mcg PO Q7D 03/07/21 [History] Levothyroxine Sodium [Euthyrox] 50 mcg PO DAILY #1 tablet 03/07/21 [Rx] metFORMIN HCL [Glucophage] 500 mg PO DAILY@1200 03/07/21 [History] Follow up Appointment(s)/Referral(s): Jennifer Aguilar DO [Doctor of Osteopathic Medicine] - 2 Weeks (office will call you to make an appointment. ) Nahum Krishnamurthy DO [Primary Care Provider] - 1 Week (office will call to schedule appointment in one week. Have your blood work drawn before this appointment. ) Ambulatory/Diagnostic Orders: Complete Blood Count w/diff [LAB.AMB] Location: None Selected Activity/Diet/Wound Care/Special Instructions: Continue low fat diet at home. fluids are encouraged. Have lab work drawn as directed by family doctor before your visit to their office to follow up. Continue doing the incentive spirometry at home. The dressings and band aids may be removed on Sunday, then you may shower. No tub baths swimming pools or hot tubs. You may recover the incisions daily with a light dressing or band aids if you like. Expect some bruising near the bellybutton. You may have some diarrhea with fattier foods. Call physician if you develop fevers 101 or higher, chills, not tolerating a diet or fluids, concerns of wound infection, pain not controlled by medications prescribed to you. Discharge Disposition: HOME SELF-CARE
== END 2021-03-07 14:00 | disposition home or self-care (01) ==
LOC: EC 04:21 → 6NMEDSUR 07:11 → 6PED 12:08
PROVIDERS: ADMIT Family Medicine; ATTEND Family Medicine
DX: K80.62 Calculus of gallbladder and bile duct with acute cholecystitis without obstruction (principal); E11.9 Type 2 diabetes mellitus without complications; E78.5 Hyperlipidemia, unspecified; I10 Essential (primary) hypertension; K58.1 Irritable bowel syndrome with constipation; K57.30 Diverticulosis of large intestine without perforation or abscess without bleeding; K44.9 Diaphragmatic hernia without obstruction or gangrene; E03.9 Hypothyroidism, unspecified; M54.5 Low back pain; X50.0XXA Overexertion from strenuous movement or load, initial encounter; Z20.822 Contact with and (suspected) exposure to COVID-19; Z79.84 Long term (current) use of oral hypoglycemic drugs; Z79.890 Hormone replacement therapy; Z79.899 Other long term (current) drug therapy; Z88.0 Allergy status to penicillin; Z88.1 Allergy status to other antibiotic agents; Z90.49 Acquired absence of other specified parts of digestive tract; Z98.891 History of uterine scar from previous surgery; Z98.890 Other specified postprocedural states; Z80.7 Family history of other malignant neoplasms of lymphoid, hematopoietic and related tissues; Z80.42 Family history of malignant neoplasm of prostate; Z80.3 Family history of malignant neoplasm of breast
CPT/HCPCS: 96361; 96374; 96375; 99285; 36415; 88304; 80053 ×2; 82150; 83690; 85025 ×2; 81001; 83036; 87636; 74176; 47562; G0378 ×3; J2250; J2270; J2710; J0690 ×3; J2405; J3010; J1885 ×2; J2370; J0330; J2704; C9113 ×2

== ENCOUNTER → 2021-12-07 | Outpatient (CLI) | payer MEDICARE, OTHER ==
--- NOTE | 2021-12-07 12:58 | MM ---
Reason for exam: screening (asymptomatic). Last mammogram was performed 1 year and 5 months ago. History: Patient is postmenopausal. Family history of breast cancer in mother at age 80. Excisional biopsy of the left breast. Took hormonal contraceptives for 1 year. Physical Findings: A clinical breast exam by your physician is recommended on an annual basis and results should be correlated with mammographic findings. MG 3D Screening Mammo W/Cad Bilateral CC and MLO view(s) were taken. Prior study comparison: June 22, 2020, bilateral MG 3d screening mammo w/cad. August 14, 2016, mammogram, performed at [place]. There are scattered fibroglandular densities. There is chronic nodularity in the right breast. There is no discrete abnormality. ASSESSMENT: Benign, BI-RAD 2 RECOMMENDATION: Routine screening mammogram of both breasts in 1 year.
== END | disposition home or self-care (01) ==
LOC: RADMAMWWP 08:25
PROVIDERS: ATTEND Family Medicine
DX: Z12.31 Encounter for screening mammogram for malignant neoplasm of breast (principal); Z78.0 Asymptomatic menopausal state; Z80.3 Family history of malignant neoplasm of breast
CPT/HCPCS: 77063; 77067

== ENCOUNTER → 2022-02-21 | Outpatient (CLI) | payer MEDICARE, OTHER ==
--- NOTE | 2022-02-22 04:10 | MR ---
EXAMINATION TYPE: MR knee RT wo con DATE OF EXAM: 02/21/2022 COMPARISON: None HISTORY: R knee pain Multiplanar multiecho imaging of the right knee without contrast. The anterior and posterior cruciate ligaments are intact. There are multiple rounded low signal leni s on the proton density images at the posterior aspect of the knee joint that could be synovial chond romatosis. These measure up to 12 mm. There is also an oval-shaped similar focus in the anterior aspe ct of the distal femur within joint effusion. This measures 1.6 cm in length. There is narrowing of t he patellofemoral joint space. There is some narrowing of the medial and lateral joint spaces. The co llateral ligaments are intact. There is moderate spurring of the femoral and tibial condyles medially and laterally. There is extensive abnormal increased signal in the anterior horn of the lateral meni scus. There is mild thickening and increased signal in the posterior horn of the lateral meniscus. There is extensive vertical and horizontal increased signal in the posterior horn of the medial menis cus. There is mild knee joint effusion. IMPRESSION: Extensive tears are present in the anterior horn of the lateral meniscus and the posterior horn of th e medial meniscus. No evidence of ligamentous tear. Moderate osteoarthritis. Extensive synovial chondromatosis.
== END | disposition home or self-care (01) ==
LOC: RADMRIMAIN 10:55
PROVIDERS: ATTEND Orthopaedic Surgery
DX: D48.0 Neoplasm of uncertain behavior of bone and articular cartilage (principal); M23.341 Other meniscus derangements, anterior horn of lateral meniscus, right knee; M17.11 Unilateral primary osteoarthritis, right knee

== ENCOUNTER 2022-04-13 09:31 | Day surgery (SDC) | payer MEDICARE, OTHER ==
--- NOTE | 2022-04-12 20:18 | HP ---
HISTORY AND PHYSICAL DATE OF SURGERY: 04/13/2022 Gely Cobb is a 77-year-old patient seen with progressive right knee pain. We discussed options for treatment. She elected to proceed with right knee arthroscopy. Consent was obtained. Medical clearance was provided by Dr. Nahum Krishnamurthy. PAST MEDICAL HISTORY: Hypertension, hyperlipidemia, iby-ghpdyfi-jykubrers diabetes, hypothyroidism. PAST SURGICAL HISTORY: Appendectomy, section, cholecystectomy, tonsillectomy. DAILY MEDICATIONS: Levothyroxine, lisinopril, metformin, rosuvastatin. ALLERGIES: CLEOCIN, ERYTHROMYCIN, PENICILLIN. SOCIAL HISTORY: She denies tobacco use. PHYSICAL EVALUATION OF THE RIGHT KNEE: Range of motion is zero to 125. Mild effusion. Tenderness along the medial and lateral joint lines. Positive medial Rex's. Positive lateral Rxe's. Ligaments stable. Hip rotation without pain. Distal neurovascular exam intact. Right knee radiographs revealed osteoarthritic changes. MRI right knee revealed medial and lateral meniscal tears. IMPRESSION: 1. Internal derangement of right knee with medial and lateral meniscal tears. 2. Right knee osteoarthritis. 3. Hypertension. 4. Hyperlipidemia. 5. Kyk-tbxipiu-mctnvlziy diabetes. PLAN: Right knee arthroscopy with partial medial and lateral meniscectomy and debridement. MMODL / IJN: [id number] /
[~2022-04-13 09:31] MED LIST changes: +DEXAMETHASONE SOD PHOSPHATE 4 MG/ML 1 ML VIAL IV ONE; +HYDROmorphone 0.5 MG/0.5 ML SYRINGE IVP PRN; -LACTATED RINGERS 1,000 ML IV SCH; -LIDOCAINE 1% 20 ML VIAL (10MG/ML) FOR IV START INTRADERMA PRN; +ONDANSETRON 4 MG/2 ML VIAL IVP ONE
[2022-04-13] MEDS: LACTATED RINGERS 1,000 ML IV SCH ×2 (10:20→11:07)
[2022-04-13 10:28] LABS: Glucose,Whole Blood 129 mg/dL (75-99)
[2022-04-13] MEDS ORDERED: PROPOFOL 10 MG/ML 20 ML VIAL IV ONE (11:07)
[2022-04-13] MEDS ORDERED: MIDAZOLAM 2 MG/2 ML VIAL ONE (11:07)
[2022-04-13] MEDS ORDERED: LIDOCAINE 2% INJ 20 MG/ML (2 ML VIAL) ONE (11:07)
[2022-04-13] MEDS ORDERED: fentaNYL (PF) 50 MCG/ML 2 ML AMP ONE (11:07)
[2022-04-13] MEDS ORDERED: BUPIVACAIN-EPI 0.25%-1:200,000 30 ML VIAL INTRAARTIC ONE (11:12)
--- NOTE | 2022-04-13 12:04 | P.OP ---
Date of Procedure: 04/13/22 Preoperative Diagnosis: Internal derangement right knee Postoperative Diagnosis: 1. Tear medial and lateral meniscus right knee 2. Grade 4 chondromalacia medial femoral condyle right knee 3. Grade 4 chondromalacia patellofemoral joint right knee 4. Reactive synovitis medial, lateral and suprapatellar compartments right knee Procedure(s) Performed: 1. Arthroscopic partial medial and lateral meniscectomy right knee 2. Arthroscopic microfracture medial femoral condyle right knee 3. Arthroscopic partial synovectomy medial, lateral and suprapatellar compartments right knee Anesthesia: RILEYA, local Surgeon: Miguel Ruiz Estimated Blood Loss (ml): 7 Pathology: none sent Condition: stable Disposition: PACU Indications for Procedure: 77-year-old patient seen with progressive right knee pain. After having treatment options discussed, she elected to proceed with arthroscopy. Operative Findings: See description of procedure Description of Procedure: Patient was taken to the operative suite. Patient underwent a general anesthetic by the department of anesthesia. Patient was given preoperative antibiotics. The right lower extremity was placed in a well-padded arthroscopic leg garrido. The right leg was prepped and draped in the normal sterile orthopedic fashion. A lateral parapatellar and suprapatellar incision was made. Trochars were inserted. Arthroscopy was initiated. Suprapatellar pouch right. The patellofemoral joint appeared to articulate congruently. There was grade 4 chondromalacia of both the patella and the femoral sulcus with large areas of exposed bone on both sides. The scope was guided into the medial gutter. No loose bodies or plica were identified. The scope was then guided into the medial compartment. A medial parapatellar incision was made. Trocar inserted followed by probe. There was a complex tear involving the posterior horn of the medial meniscus. There were grade 3/4 chondromalacia changes of the medial femoral condyle. There was some thick reactive synovitis anteriorly. I performed a partial medial meniscectomy getting down to stable meniscal tissue. I performed a chondroplasty of the medial femoral condyle getting down to stable osteochondral tissue. I performed a partial synovectomy decompressing the thick reactive synovitis. The residual meniscus was stable. There was good decompression of the synovitis. There was an area of grade 4 chondromalacia along the weightbearing surface medial femoral condyle measuring about 1 cm. I introduced a microfracture awl into the medial compartment. I performed a microfracture of the medial femoral condyle exposed bone penetrating the bone with resultant bleeding at the microfracture site. The residual osteochondral surface was probed and was found to be stable. Scope and probe were then g uided into the intercondylar notch. Cruciates were identified, probed and found to be stable. The scope and probe were then guided into lateral compartment. There was a complex tear involving the mid body and anterior horns of the lateral meniscus. There were some grade 1/2 chondromalacia changes lateral compartment with no tears. There was some thick reactive synovitis anteriorly. I performed a partial lateral meniscectomy getting down to stable meniscal tissue. I performed a partial synovectomy decompressing the reactive synovitis. The residual meniscus was probed and was found to be stable. There was good decompression of the synovitis. The scope was in guided back into the suprapatellar compartment. I introduced a motorized shaver into the suprapatellar compartment. I debrided some piecemeal fragments of meniscus that I encountered. I performed a partial synovectomy. The shaver was now removed. There was good decompression of synovitis. I now took one more look around the entire knee, no residual debris. Instruments were now removed from the joint. The joint was infiltrated with .25% Marcaine. Steri-Strips were applied to the portal sites. Sterile dressings were applied. The patient was placed into a BRISEIDA hose. No tourniquet was utilized. The patient was awakened, transferred to a bed and taken to recovery stable satisfactory condition.
[2022-04-13] MEDS ORDERED: HYDROmorphone 0.5 MG/0.5 ML SYRINGE IVP ONE ×2 (12:05→12:29)
[2022-04-13 12:11] VITALS: TEMP 97.1
[2022-04-13 12:24] LABS: Glucose,Whole Blood 143 mg/dL (75-99)
[2022-04-13 13:16] VITALS: RESP 16
[2022-04-13] MEDS ORDERED: traMADol 50 MG TAB PO ONE (13:17)
[2022-04-13] MEDS ORDERED: traMADol 50 MG TAB ONE (13:18)
[2022-04-13 13:39] VITALS: BP 129/73; PULSE 83
== END 2022-04-13 13:59 | disposition home or self-care (01) ==
LOC: OR 09:31
PROVIDERS: ATTEND Orthopaedic Surgery
DX: S83.231A Complex tear of medial meniscus, current injury, right knee, initial encounter (principal); S83.271A Complex tear of lateral meniscus, current injury, right knee, initial encounter; M17.11 Unilateral primary osteoarthritis, right knee; M94.261 Chondromalacia, right knee; M65.861 Other synovitis and tenosynovitis, right lower leg; I10 Essential (primary) hypertension; E78.5 Hyperlipidemia, unspecified; E11.9 Type 2 diabetes mellitus without complications; E03.9 Hypothyroidism, unspecified; E07.9 Disorder of thyroid, unspecified; F41.9 Anxiety disorder, unspecified; X58.XXXA Exposure to other specified factors, initial encounter; Z79.890 Hormone replacement therapy; Z79.899 Other long term (current) drug therapy; Z79.84 Long term (current) use of oral hypoglycemic drugs; Z88.1 Allergy status to other antibiotic agents; Z88.0 Allergy status to penicillin; Z90.49 Acquired absence of other specified parts of digestive tract; Z98.891 History of uterine scar from previous surgery; Z90.89 Acquired absence of other organs
CPT/HCPCS: 29880; J2250; J1100; J0690; J2405; J3010; J2704; J1170; J2001

== ENCOUNTER 2023-07-02 19:14 | Emergency (ER) | payer MEDICARE, OTHER ==
[2023-07-02 19:43] VITALS: RESP 18; TEMP 98.4
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
--- NOTE | 2023-07-02 20:35 | XR ---
EXAMINATION TYPE: XR ribs LT w pa chest xray DATE OF EXAM: 07/02/2023 8:04 PM INDICATION: Patient age:Female; 78 years old; Reason for study: pain; COMPARISON: 06/24/2023 TECHNIQUE: Frontal and oblique views of the left ribs with frontal chest radiograph. FINDINGS: The ribs have a normal appearance. No evidence of fracture. Overall, the lungs are clear. The cardiac silhouette is normal in size. The remaining osseous structures are intact. IMPRESSION: No displaced rib fractures visualized.
[2023-07-02] MEDS ORDERED: KETOROLAC 15 MG/ML 1 ML VIAL IM STA (21:11)
[2023-07-02] MEDS ORDERED: LIDOCAINE 5% PATCH TOPICAL STA (21:12)
[2023-07-02] MEDS ORDERED: BENZONATATE 100 MG CAP PO STA (21:48)
[2023-07-02 22:03] VITALS: BP 137/78; PULSE 72
== END 2023-07-02 22:00 | disposition home or self-care (01) ==
LOC: EC 19:14
DX: S29.019A Strain of muscle and tendon of unspecified wall of thorax, initial encounter (principal); R05.9 Cough, unspecified; E11.9 Type 2 diabetes mellitus without complications; I10 Essential (primary) hypertension; E78.5 Hyperlipidemia, unspecified; Z79.84 Long term (current) use of oral hypoglycemic drugs; Z79.899 Other long term (current) drug therapy; Z88.0 Allergy status to penicillin; Z88.1 Allergy status to other antibiotic agents; Z90.49 Acquired absence of other specified parts of digestive tract; X58.XXXA Exposure to other specified factors, initial encounter
CPT/HCPCS: 71101; 99283; 96372; J1885

== ENCOUNTER 2023-07-22 13:43 | Emergency (ER) | payer MEDICARE, OTHER ==
[2023-07-22] MEDS: LIDOCAINE 5% PATCH TOPICAL SCH ×2 (16:38→18:11)
--- NOTE | 2023-07-22 17:01 | XR ---
EXAMINATION TYPE: XR chest 2V DATE OF EXAM: 07/22/2023 COMPARISON: 07/02/23 HISTORY: Shortness of breath TECHNIQUE: Frontal and lateral views of the chest are obtained. FINDINGS: Scattered senescent parenchymal changes noted. Hyperinflation compatible with COPD. No evidence for infiltrate. No evidence for atelectasis. Heart size is stable. Mediastinal structures are stable and grossly unremarkable. No evidence for hilar prominence. Degenerative changes dorsal spine. IMPRESSION: 1. No evidence for acute pulmonary disease.
[2023-07-22 17:05] LABS: Basophils % (A) 0 %; Eosinophils # (A) 0.4 k/uL (0-0.7); Eosinophils % (A) 3 %; HCT 39.9 % (34.0-46.0); HGB 13.1 gm/dL (11.4-16.0); Lymphocytes % (A) 18 %; MCHC 32.7 g/dL (31.0-37.0); MCV 97.8 fL (80.0-100.0); Mean Platelet Volume 7.9; Monocytes # (A) 0.6 k/uL (0-1.0); Monocytes % (A) 6 %; Neutrophils # (A) 7.6 k/uL (1.3-7.7); Neutrophils % (A) 70 %; Platelet Count 371 k/uL (150-450); RBC 4.09 m/uL (3.80-5.40); RDW 12.3 % (11.5-15.5); WBC 10.8 k/uL (3.8-10.6)
[2023-07-22 17:17] LABS: ALT 20 U/L (4-34); AST 26 U/L (14-36); African American GFR (CKD) 87 (>60 ml/min/1.73 sqM); Albumin 3.8 g/dL (3.5-5.0); Alkaline Phosphatase 74 U/L (38-126); Anion Gap 4 mmol/L; Blood Urea Nitrogen 17 mg/dL (7-17); Calcium 9.1 mg/dL (8.4-10.2); Carbon Dioxide 28 mmol/L (22-30); Chloride 104 mmol/L (98-107); Glucose 146 mg/dL (74-99); Non-African American GFR(CKD) 76 (>60 ml/min/1.73 sqM); Potassium 4.5 mmol/L (3.5-5.1); Sodium 136 mmol/L (137-145); Total Bilirubin 0.5 mg/dL (0.2-1.3); Total Protein 6.4 g/dL (6.3-8.2)
[2023-07-22] MEDS ORDERED: Acetaminophen-Codeine 300-30mg TAB PO STA (17:45)
--- NOTE | 2023-07-22 17:49 | ED ---
Back Pain HPI - General Chief Complaint: Back Pain/Injury Stated Complaint: Back pain Time Seen by Provider: 07/22/23 16:08 Source: patient Limitations: no limitations - History of Present Illness Initial Comments: 78-year-old female presenting with chief complaint of back pain. Pain is sharp and located mainly on the left side. Patient has had a cough for the last 2 wee ks, states that when she was coughing today she felt a pop. Pain is worse with range of motion and deep breaths. No chest pain. No fevers or chills. Patient has been on antibiotics and steroids previously. No dizziness or lower extremity swelling. No palpitations. - Related Data Home Medications Medication Instructions Recorded Confirmed lisinopriL 20 mg PO DAILY 10/04/18 04/12/22 Rosuvastatin [Crestor] 5 mg PO HS 03/06/21 04/12/22 Ergocalciferol [Vitamin D2 (1250 1,250 mcg PO Q7D 03/07/21 04/12/22 Mcg = [id number] Iu)] metFORMIN HCL [Glucophage] 500 mg PO DAILY@1200 03/07/21 04/12/22 Previous Rx's Medication Instructions Recorded Levothyroxine Sodium [Euthyrox] 50 mcg PO DAILY #1 tablet 03/07/21 traMADol HCl [Ultram] 50 mg PO Q6H PRN #12 tab 04/13/22 Acetaminophen Tab [Tylenol Tab] 1,000 mg PO Q6HR PRN #30 tablet 07/02/23 Benzonatate [Tessalon Perles] 100 mg PO TID PRN #15 capsule 07/02/23 Lidocaine 5% Patch [Lidoderm 5% 1 patch TOPICAL DAILY PRN #7 patch 07/02/23 Patch] Albuterol Sulfate [Albuterol 1 puff PO Q4-6H PRN #8.5 gm 07/22/23 Sulfate Hfa] Benzonatate [Tessalon Perles] 100 mg PO TID PRN #15 capsule 07/22/23 methylPREDNISolone Dose Pack 4 mg PO DIRECTED #1 packet 07/22/23 [Medrol Dose Pack] Allergies Allergy/AdvReac Type Severity Reaction Status Date / Time clindamycin [From Cleocin] Allergy Rash/Hives Verified 07/22/23 13:50 erythromycin base Allergy Rash/Hives Verified 07/22/23 13:50 Penicillins Allergy Rash/Hives Verified 07/22/23 13:50 Review of Systems ROS Statement: Those systems with pertinent positive or pertinent negative responses have been documented in the HPI. ROS Other: All systems not noted in ROS Statement are negative. Past Medical History Past Medical History: Diabetes Mellitus, Hyperlipidemia, Hypertension Additional Past Medical History / Comment(s): constipation,IBS,palpitation History of Any Multi-Drug Resistant Organisms: None Reported Past Surgical History: Appendectomy, Section, Hernia Repair Additional Past Surgical History / Comment(s): double hernia repair,c section x2 Past Anesthesia/Blood Transfusion Reactions: No Reported Reaction Additional Past Anesthesia/Blood Transfusion Reaction / Comment(s): no hx blood transfusion. difficult IV insertion Past Psychological History: No Psychological Hx Reported Smoking Status: Never smoker Past Alcohol Use History: None Reported Past Drug Use History: None Reported - Past Family History Mother Family Medical History: Cancer Additional Family Medical History / Comment(s): breast Father Family Medical History: Cancer Additional Family Medical History / Comment(s): lymphoma Sister(s) Family Medical History: Cancer Additional Family Medical History / Comment(s): breast Brother(s) Family Medical History: Cancer Additional Family Medical History / Comment(s): prostate General Exam Limitations: no limitations General appearance: alert, in no apparent distress Head exam: Present: atraumatic, normocephalic, normal inspection Eye exam: Present: normal appearance, EOMI Neck exam: Present: normal inspection, full ROM Respiratory exam: Present: normal lung sounds bilaterally, chest wall tenderness. Absent: respiratory distress, wheezes, rales, rhonchi, stridor Cardiovascular Exam: Present: regular rate, normal rhythm, normal heart sounds. Absent: systolic murmur, diastolic murmur, rubs, gallop, clicks Back exam: Present: normal inspection, tenderness Neurological exam: Present: alert, oriented X3, CN II-XII intact Psychiatric exam: Present: normal affect, normal mood Skin exam: Present: warm, dry, intact, normal color. Absent: rash Course Vital Signs 07/22/23 07/22/23 13:48 18:14 Temperature 98.4 F 98.6 F Pulse Rate 82 66 Respiratory 20 18 Rate Blood Pressure 95/56 120/71 O2 Sat by Pulse 99 98 Oximetry Medical Decision Making - Medical Decision Making Was pt. sent in by a medical professional or institution (DEVIN Martínez, PRESS BRAKE OPERATOR, urgent care, hospital, or intermediate...) When possible be specific @ -No Did you speak to anyone other than the patient for history (EMS, parent, family, police, friend...)? What history was obtained from this source @ -No Did you review nursing and triage notes (agree or disagree)? Why? @ -I reviewed and agree with nursing and triage notes Were old charts reviewed (outside hosp., previous admission, EMS record, old E KG, old radiological studies, urgent care reports/EKG's, intermediate records)? Report findings @ -No old charts were reviewed Differential Diagnosis (chest pain, altered mental status, abdominal pain women, abdominal pain men, vaginal bleeding, weakness, fever, dyspnea, syncope, headache, dizziness, GI bleed, back pain, seizure, CVA, palpatations, mental hea lth, musculoskeletal)? @ - MDM Differential Back Pain: Strain, zoster, cauda equina syndrome, epidural abscess, vertebral osteomyelitis, discitis, fracture, subluxation, disc herniation, DJD, spinal stenosis, dissection, AAA, pancreatitis, peptic ulcer disease, pyelonephritis, k idney stone this is not meant to be an all-inclusive list. EKG interpreted by me (3pts min.). @ -Sinus rhythm with first-degree AV block. Ventricular rate 74. ID interval 221. QRS 96. Q-T 375. QTc 402. No ST deviation. Normal axis. X-rays interpreted by me (1pt min.). @ -Chest x-ray shows no acute cardiopulmonary process CT interpreted by me (1pt min.). @ -None done U/S interpreted by me (1pt. min.). @ -None done What testing was considered but not performed or refused? (CT, X-rays, U/S, labs)? Why? @ -None What meds were considered but not given or refused? Why? @ -None Did you discuss the management of the patient with other professionals (professionals i.e. DEVIN Martínez, PRESS BRAKE OPERATOR, lab, RT, psych nurse, social service director, corporate intern, teacher, gunnery/ordnance officer, rehabilitation case coordinator)? Give summary @ -No Was smoking cessation discussed for >3mins.? @ -No Was critical care preformed (if so, how long)? @ -No Were there social determinants of health that impacted care today? How? (Homelessness, low income, unemployed, alcoholism, drug addiction, t ransportation, low edu. Level, literacy, decrease access to med. care, [facility], rehab)? @ -No Was there de-escalation of care discussed even if they declined (Discuss DNR or withdrawal of care, Hospice)? DNR status @ -No What co-morbidities impacted this encounter? (DM, HTN, Smoking, COPD, CAD, Cancer, CVA, ARF, Chemo, Hep., AIDS, mental health diagnosis, sleep apnea, morbid obesity)? @ -None Was patient admitted / discharged? Hospital course, mention meds given and route, prescriptions, significant lab abnormalities, going to OR and other pertinent info. @ -78-year-old female presenting with chief complaint of back pain. Patient has had a persistent cough for the last 2 weeks and felt a pop earlier today. On physical examination her lungs are clear to auscultation of the pain is reproducible. Chest x-ray is negative and d-dimer is WNL. Patient is educated on today's findings and will be treated with albuterol inhaler and Medrol Dosepak at home. Take Motrin and Tylenol as needed. Discharged home in stable condition. Follow-up with PCP. Report back to ER with any new or worsening symptoms. Discussed return parameters and answered all questions. Patient conveyed verbal understanding and agreed to the plan. I discussed this case in detail with my attending Dr. Burgos Undiagnosed new problem with uncertain prognosis? @ -No Drug Therapy requiring intensive monitoring for toxicity (Heparin, Nitro, Insulin, Cardizem)? @ -No Were any procedures done? @ -No Diagnosis/symptom? @ -Bronchitis Acute, or Chronic, or Acute on Chronic? @ -Acute Uncomplicated (without systemic symptoms) or Complicated (systemic symptoms)? @ -Uncomplicated Side effects of treatment? @ -No Exacerbation, Progression, or Severe Exacerbation? @ -No Poses a threat to life or bodily function? How? (Chest pain, USA, [place], pneumonia, PE, COPD, DKA, ARF, appy, cholecystitis, CVA, Diverticulitis, Homicidal, Suicidal, threat to staff... and all critical care pts) @ -Low likelihood - Lab Data Result diagrams: 07/22/23 16:40 07/22/23 16:40 Lab Results 07/22/23 07/22/23 07/22/23 Range/Units 16:40 16:40 16:40 WBC 10.8 H (3.8-10.6) k/uL RBC 4.09 (3.80-5.40) m/uL Hgb 13.1 (11.4-16.0) gm/dL Hct 39.9 (34.0-46.0) % MCV 97.8 (80.0-100.0) fL MCH 32.0 (25.0-35.0) pg MCHC 32.7 (31.0-37.0) g/dL RDW 12.3 (11.5-15.5) % Plt Count 371 (150-450) k/uL MPV 7.9 Neutrophils % 70 % Lymphocytes % 18 % Monocytes % 6 % Eosinophils % 3 % Basophils % 0 % Neutrophils # 7.6 (1.3-7.7) k/uL Lymphocytes # 2.0 (1.0-4.8) k/uL Monocytes # 0.6 (0-1.0) k/uL Eosinophils # 0.4 (0-0.7) k/uL Basophils # 0.0 (0-0.2) k/uL D-Dimer 0.58 (<0.60) mg/L FEU Sodium 136 L (137-145) mmol/L Potassium 4.5 (3.5-5.1) mmol/L Chloride 104 (98-107) mmol/L Carbon Dioxide 28 (22-30) mmol/L Anion Gap 4 mmol/L BUN 17 (7-17) mg/dL Creatinine 0.76 (0.52-1.04) mg/dL Est GFR (CKD-EPI)AfAm 87 (>60 ml/min/1.73 sqM) Est GFR (CKD-EPI)NonAf 76 (>60 ml/min/1.73 sqM) Glucose 146 H (74-99) mg/dL Calcium 9.1 (8.4-10.2) mg/dL Total Bilirubin 0.5 (0.2-1.3) mg/dL AST 26 (14-36) U/L ALT 20 (4-34) U/L Alkaline Phosphatase 74 (38-126) U/L Total Protein 6.4 (6.3-8.2) g/dL Albumin 3.8 (3.5-5.0) g/dL Disposition Clinical Impression: Bronchitis, Rib pain Disposition: HOME SELF-CARE Condition: Good Instructions (If sedation given, give patient instructions): Acute Bronchitis (ED) Additional Instructions: Follow-up with PCP. Report back to ER with any new or worsening symptoms. Take Motrin and Tylenol for pain control. Prescriptions: Albuterol Sulfate [Albuterol Sulfate Hfa] 1 puff PO Q4-6H PRN #8.5 gm PRN Reason: Shortness Of Breath methylPREDNISolone Dose Pack [Medrol Dose Pack] 4 mg PO DIRECTED #1 packet Benzonatate [Tessalon Perles] 100 mg PO TID PRN #15 capsule PRN Reason: Cough Is patient prescribed a controlled substance at d/c from ED?: No Referrals: Nahum Krishnamurthy DO [Primary Care Provider] - 1-2 days Time of Disposition: 17:49
[2023-07-22 18:19] VITALS: BP 120/71; PULSE 66; RESP 18; TEMP 98.6
== END 2023-07-22 18:15 | disposition home or self-care (01) ==
LOC: EC 13:43
DX: J40 Bronchitis, not specified as acute or chronic (principal); M54.9 Dorsalgia, unspecified; E11.9 Type 2 diabetes mellitus without complications; I10 Essential (primary) hypertension; E78.5 Hyperlipidemia, unspecified; Z79.84 Long term (current) use of oral hypoglycemic drugs; Z79.899 Other long term (current) drug therapy; Z88.0 Allergy status to penicillin; Z88.1 Allergy status to other antibiotic agents
CPT/HCPCS: 36415; 71046; 80053; 85025; 85379; 93005; 99284

== ENCOUNTER → 2023-12-11 | Outpatient (CLI) | payer MEDICARE, OTHER ==
--- NOTE | 2023-12-12 09:38 | MM ---
Reason for Exam: Screening (asymptomatic). Last screening mammogram was performed 12 month(s) ago. Patient History: Menarche at age 13. First Full-Term at age 23. Postmenopausal. Patient used Hormonal Contraceptives for 1 year. Excisional Biopsy on the Left side. Mother had breast cancer, age 80. Risk Values: Brooke 5 year model risk: 3.9%. NCI Lifetime model risk: 6.9%. Prior Study Comparison: 06/22/2020 Bilateral Screening Mammogram, [facility]. 12/07/2021 Bilateral Screening Mammogram, [facility]. 12/08/2022 Bilateral MG 3D screening mammo w/cad, [facility]. Tissue Density: There are scattered fibroglandular densities. Findings: Analyzed By CAD. There is no suspicious group of microcalcifications or new suspicious mass in either breast. Stable benign-appearing calcifications. Overall Assessment: Benign, BI-RAD 2 Management: Screening Mammogram of both breasts in 1 year. . Patient should continue monthly self-breast exams. A clinical breast exam by your physician is recommended on an annual basis. This exam should not preclude additional follow-up of suspicious palpable abnormalities. Note on Brooke scores and lifetime risk: 1. A Brooke score greater than 3% is considered moderate risk. If this is the case, consider specialist referral to assess eligibility for a risk reducing agent. 2. If overall lifetime risk for the development of breast cancer is 20% or higher, the patient may qualify for future screening with alternating mammogram and breast MRI. Electronically signed and approved by: Chad Vasquez M.D. Radiologis
== END | disposition home or self-care (01) ==
LOC: RADMAMWWP 07:53
PROVIDERS: ATTEND Family Medicine
DX: Z12.31 Encounter for screening mammogram for malignant neoplasm of breast (principal); Z80.3 Family history of malignant neoplasm of breast; Z78.0 Asymptomatic menopausal state
CPT/HCPCS: 77063; 77067

== ENCOUNTER → 2025-02-13 | Outpatient (CLI) | payer MEDICARE, OTHER ==
--- NOTE | 2025-02-13 11:59 | CT ---
EXAMINATION TYPE: CT brain wo con DATE OF EXAM: 02/13/2025 11:08 AM COMPARISON: None. CLINICAL INDICATION: Female, 79 years old with history of R41.3 AMNESIA, AMNESIA TECHNIQUE: Brain: Axial CT images of the brain were obtained with coronal and sagittal reformats created and rev iewed. Contrast used: None. Oral contrast used: None. CT DLP: 1039.6 mGycm, Automated exposure control for dose reduction was used. FINDINGS: Brain: Extra-axial spaces: No abnormal extra-axial fluid collections. Extra-axial mass in the right middle c ranial fossa medially. This measures at least 3.0 x 2.3 x 3.2 cm. This closely approximates the inter nal carotid artery. Ventricular system: Within normal limits, Cerebral parenchyma: Vasogenic edema within the right middle lobe. Possibly due to mass described abo ve. No acute intraparenchymal hemorrhage or mass effect. The graham-white junction is well differentia maryam. Cerebellum: Unremarkable. Mass effect: No evidence of midline shift. Intracranial vasculature: unremarkable Soft tissues: Normal. Calvarium/osseous structures: No depressed skull fracture. Paranasal sinuses and mastoid air cells: Mild scattered paranasal sinus disease. Visualized orbits: Bilateral aphakia IMPRESSION: No acute intracranial process. Extra-axial masslike lesion in the medial aspect of the right middle cranial fossa. Findings could re present meningioma versus other lesions given its close proximity to the facets are possibly vascular in etiology which is felt to be less likely. Further evaluation with MRI with IV contrast jb staff[facility], , 02/13/2025 11:57 AM
== END | disposition home or self-care (01) ==
LOC: RADCTMAIN 10:36
PROVIDERS: ATTEND Family Medicine
DX: R41.3 Other amnesia (principal); R22.0 Localized swelling, mass and lump, head
CPT/HCPCS: 70450